=== PATIENT | female | born 1955 | race Caucasian/White ===

== ENCOUNTER 2018-12-30 13:36 | Inpatient (IN) | payer MEDICARE ==
--- NOTE | 2018-12-30 14:06 | ERPHSYRPT ---
- History of Present Illness Time Seen by Provider: 12/30/18 13:55 Source: patient, family, EMS Exam Limitations: no limitations Patient Subjective Stated Complaint: pt here for swelling to lower legs, sob at times, cough nonproductive, she states that she has had increase swelling for over 2 weeks now, was seen at drs office ans started on a new water pill she states is not working, Triage Nursing Assessment: pt arrived per ambulance, resp easy at rest, labored with excertion, skin w/d/p. edema to lower legs and distended abd Physician History: 63 y/o obese white female with h/o htn, mi and chronic back pain. approx 2 weeks ago pt noticed increased swelling bilat lower ext. she has associated soa. pt has also abd distension over last 1 to 2 days. pt states she has gained 14 pounds in last 2 weeks. pt seen by pcp recently and pt placed on bumex. pts most recent colonoscopy revealed benign polyps. pt did have recent airplane travel across country. pt states she has itching with morphine. she can use dilaudid without problems. Timing/Duration: day(s) (2 for abd distension), week(s) (2 for swelling) Severity: moderate Associated Symptoms: nausea, abdominal pain, shortness of breath, No vomiting, No chest pain Allergies/Adverse Reactions: morphine Allergy (Mild, Verified 12/30/18 13:38) Itching Home Medications: Lisinopril/Hydrochlorothiazide [Zestoretic 10-12.5 mg Tablet] 10 - 12.5 mg PO DAILY 02/21/12 [History] Albuterol 2.5 mg/3 ml Neb [Proventil 2.5 mg/3 ml Neb] 1 neb IH QID PRN 01/26 [History] Amlodipine Besylate 5 mg DAILY 12/30/18 [History] Bumetanide 2 mg DAILY 12/30/18 [History] Potassium 1 ea DAILY 12/30/18 [History] Rosuvastatin Calcium 5 mg DAILY 12/30/18 [History] Hx Influenza Vaccination/Date Given: Yes Hx Pneumococcal Vaccination/Date Given: Yes Immunizations Up to Date: Yes - Review of Systems Constitutional: No Symptoms Eyes: No Symptoms Ears, Nose, & Throat: No Symptoms Respiratory: Dyspnea Cardiac: Edema Abdominal/Gastrointestinal: Abdominal Pain Musculoskeletal: No Symptoms Skin: No Symptoms Neurological: No Symptoms Psychological: No Symptoms Endocrine: No Symptoms Hematologic/Lymphatic: No Symptoms Immunological/Allergic: No Symptoms All Other Systems: Reviewed and Negative - Past Medical History Pertinent Past Medical History: Yes Neurological History: No Pertinent History ENT History: No Pertinent History Cardiac History: Angina, High Cholesterol, Hypertension, Myocardial Infarction ( [place]) Respiratory History: No Pertinent History Endocrine Medical History: No Pertinent History Musculoskeletal History: Fractures, Osteoarthritis GI Medical History: No Pertinent History History: No Pertinent History Psycho-Social History: Anxiety, Depression Female Reproductive Disorders: No Pertinent History Other Medical History: fibroids in breast. left elbow fx, chronic back pain - Past Surgical History Past Surgical History: Yes Neuro Surgical History: No Pertinent History Cardiac: Cardiac Catheterization Respiratory: No Pertinent History Gastrointestinal: No Pertinent History Genitourinary: No Pertinent History Musculoskeletal: Orthopedic Surgery Female Surgical History: No Pertinent History Other Surgical History: right knee replaced and revision after a fall. bilateral ear tubes - Social History Smoking Status: Former smoker How long have you smoked: 40yrs Exposure to second hand smoke: Yes Drug Use: none Patient Lives Alone: No - Female History Hx Last Menstrual Period: psot Hx Now: No - Nursing Vital Signs Nursing Vital Signs: Initial Vital Signs Temperature 97.0 F 12/30/18 13:47 Pulse Rate 109 H 12/30/18 13:47 Respiratory Rate 22 12/30/18 13:47 Blood Pressure 138/83 12/30/18 13:47 O2 Sat by Pulse Oximetry 94 L 12/30/18 13:47 Pain Scale Pain Intensity [Back] 8 Pain Intensity 4 - Physical Exam Eye Exam: PERRL/EOMI Ears, Nose, Throat Exam: normal ENT inspection Neck Exam: normal inspection, non-tender, supple, full range of motion Respiratory Exam: normal breath sounds, lungs clear, airway intact, No chest tenderness, No respiratory distress Cardiovascular Exam: regular rate/rhythm, normal heart sounds, normal peripheral pulses Gastrointestinal/Abdomen Exam: tenderness (mild diffuse), distention, No guarding, No rebound Pelvic Exam: not done Rectal Exam: not done Back Exam: normal inspection, normal range of motion, No CVA tenderness, No vertebral tenderness Extremity Exam: pedal edema, swelling Skin Exam: normal color, warm, dry Lymphatic Exam: No adenopathy SpO2 Interpretation: borderline oxygenation SpO2: 94 O2 Delivery: Room Air - Course Nursing assessment & vital signs reviewed: Yes EKG Interpreted by Me: RATE ([id number]), Sinus Rhythm, Sinus Tach, NORMAL AXIS, NORMAL QRS, Other (new s1/sQ3, new onset tachycardia, when compared to ekg ) Ordered Tests: Active Orders 24 hr Category Date Time Status Catheter-[place] STAT Care 12/30/18 14:09 Active EKG-ER Only STAT Care 12/30/18 14:09 Active IV Insertion STAT Care 12/30/18 14:09 Active Pulse Oximetry (ED) STAT Care 12/30/18 14:09 Active ABDOMEN AND PELVIS W/0 CONTRAS [CT] Stat Exams 12/30/18 15:27 Taken CHEST WITH CONTRAST [CT] Stat Exams 12/30/18 15:27 Taken AMYLASE Stat Lab 12/30/18 14:27 Completed CBC W DIFF Stat Lab 12/30/18 14:27 Completed CMP Stat Lab 12/30/18 14:27 Completed CULTURE,URINE Stat Lab 12/30/18 14:27 Received D-DIMER QUANTITATION Stat Lab 12/30/18 14:27 Completed LIPASE Stat Lab 12/30/18 14:27 Completed Lactic Acid Stat Lab 12/30/18 14:09 Completed MAGNESIUM Stat Lab 12/30/18 14:27 Completed NT PRO BNP Stat Lab 12/30/18 14:27 Completed TROPONIN Q3H Lab 12/30/18 14:27 Completed TROPONIN Q3H Lab 12/31/18 02:15 Ordered UA W/RFX UR CULTURE Stat Lab 12/30/18 14:27 Completed Transfer Order Routine Transfer 12/30/18 Ordered Medication Summary Generic Name Dose Route Start Last Admin Trade Name Freq PRN Reason Stop Dose Admin Enoxaparin Sodium 100 mg 12/30/18 20:00 12/30/18 20:14 Enoxaparin Sodium SQ 01/29/19 19:59 100 mg Q12H ESTEBAN Administration Discontinued Medications Generic Name Dose Route Start Last Admin Trade Name Freq PRN Reason Stop Dose Admin Enoxaparin Sodium Confirm 12/30/18 20:11 Enoxaparin Sodium Administered 12/30/18 20:12 Dose 120 mg SQ .STK-MED ONE Hydromorphone HCl 1 mg 12/30/18 20:06 12/30/18 20:14 Hydromorphone 1 Mg/Ml Ampule IV 12/30/18 20:07 1 mg STAT ONE Administration Hydromorphone HCl Confirm 12/30/18 20:11 Hydromorphone 1 Mg/Ml Ampule Administered 12/30/18 20:12 Dose 1 mg .ROUTE .STK-MED ONE Morphine Sulfate 4 mg 12/30/18 19:59 Morphine Sulfate 4 Mg Inj IV 12/30/18 20:00 STAT ONE Ondansetron HCl 4 mg 12/30/18 19:59 12/30/18 20:13 Zofran 4 Mg/2 Ml Vial IV 12/30/18 20:00 4 mg STAT ONE Administration Ondansetron HCl Confirm 12/30/18 20:11 Zofran 4 Mg/2 Ml Vial Administered 12/30/18 20:12 Dose 4 mg .ROUTE .STK-MED ONE Lab/Rad Data: Laboratory Result Diagrams 12/30/18 14:27 12/30/18 14:27 Laboratory Results 12/30/18 12/30/18 12/30/18 Range/Units 14:27 14:27 14:27 WBC (4.0-10.5) K/mm3 RBC (4.1-5.4) M/mm3 Hgb (12.0-16.0) gm/dl Hct (35-47) % MCV (78-100) fl MCH (26-32) pg MCHC (32-36) g/dl RDW (11.5-14.0) % Plt Count (150-450) K/mm3 MPV (6-9.5) fl Gran % (36.0-66.0) % Eos # (Auto) (0-0.5) Absolute Lymphs (auto) (1.0-4.6) Absolute Monos (auto) (0.0-1.3) Lymphocytes % (24.0-44.0) % Monocytes % (0.0-12.0) % Eosinophils % (0.00-5.0) % Basophils % (0.0-0.4) % Absolute Granulocytes (1.4-6.9) Basophils # (0-0.4) D-Dimer 7635 H* (215-500) ng/mL Sodium (137-145) mmol/L Potassium (3.5-5.1) mmol/L Chloride (98-107) mmol/L Carbon Dioxide (22-30) mmol/L Anion Gap (5-15) MEQ/L BUN (7-17) mg/dL Creatinine (0.52-1.04) mg/dL Estimated GFR ML/MIN Glucose (74-106) mg/dL Lactic Acid (0.4-2.0) Calcium (8.4-10.2) mg/dL Magnesium (1.6-2.3) mg/dL Total Bilirubin (0.2-1.3) mg/dL AST (14-36) U/L ALT (0-35) U/L Alkaline Phosphatase (38-126) U/L Troponin I < 0.012 (0.000-0.034) ng/mL NT-Pro-B Natriuret Pep (0-900) pg/mL Serum Total Protein (6.3-8.2) g/dL Albumin (3.5-5.0) g/dL Amylase (30-110) U/L Lipase (23-300) U/L Urine Color YELLOW (YELLOW) Urine Appearance CLEAR (CLEAR) Urine pH 6.0 (5-6) Ur Specific [place] 1.020 (1.005-1.025) Urine Protein NEGATIVE (Negative) Urine Ketones NEGATIVE (NEGATIVE) Urine Blood SMALL (0-5) Byron/ul Urine Nitrite NEGATIVE (NEGATIVE) Urine Bilirubin NEGATIVE (NEGATIVE) Urine Urobilinogen NEGATIVE (0-1) mg/dL Ur Leukocyte Esterase NEGATIVE (NEGATIVE) Urine WBC (Auto) NONE (0-5) /HPF Urine RBC (Auto) 0-2 (0-2) /HPF U Epithel Cells (Auto) RARE (FEW) /HPF Urine Bacteria (Auto) RARE (NEGATIVE) /HPF Urine Culture Reflexed ORDERED SEPARATELY (NO) Urine Glucose NEGATIVE (NEGATIVE) mg/dL 12/30/18 12/30/18 12/30/18 Range/Units 14:27 14:27 14:09 WBC 12.5 H (4.0-10.5) K/mm3 RBC 4.03 L (4.1-5.4) M/mm3 Hgb 12.3 (12.0-16.0) gm/dl Hct 37.5 (35-47) % MCV 93.1 (78-100) fl MCH 30.5 (26-32) pg MCHC 32.8 (32-36) g/dl RDW 12.4 (11.5-14.0) % Plt Count 371 (150-450) K/mm3 MPV 10.6 H (6-9.5) fl Gran % 78.8 H (36.0-66.0) % Eos # (Auto) 0.14 (0-0.5) Absolute Lymphs (auto) 1.28 (1.0-4.6) Absolute Monos (auto) 1.20 (0.0-1.3) Lymphocytes % 10.2 L (24.0-44.0) % Monocytes % 9.6 (0.0-12.0) % Eosinophils % 1.1 (0.00-5.0) % Basophils % 0.3 (0.0-0.4) % Absolute Granulocytes 9.85 H (1.4-6.9) Basophils # 0.04 (0-0.4) D-Dimer (215-500) ng/mL Sodium 131 L (137-145) mmol/L Potassium 3.8 (3.5-5.1) mmol/L Chloride 90 L (98-107) mmol/L Carbon Dioxide 28 (22-30) mmol/L Anion Gap 15.9 H (5-15) MEQ/L BUN 15 (7-17) mg/dL Creatinine 0.89 (0.52-1.04) mg/dL Estimated GFR > 60.0 ML/MIN Glucose 117 H (74-106) mg/dL Lactic Acid 1.7 (0.4-2.0) Calcium 8.6 (8.4-10.2) mg/dL Magnesium 1.7 (1.6-2.3) mg/dL Total Bilirubin 0.40 (0.2-1.3) mg/dL AST 31 (14-36) U/L ALT 22 (0-35) U/L Alkaline Phosphatase 86 (38-126) U/L Troponin I (0.000-0.034) ng/mL NT-Pro-B Natriuret Pep 78.8 (0-900) pg/mL Serum Total Protein 6.7 (6.3-8.2) g/dL Albumin 3.6 (3.5-5.0) g/dL Amylase 211 H (30-110) U/L Lipase 67 (23-300) U/L Urine Color (YELLOW) Urine Appearance (CLEAR) Urine pH (5-6) Ur Specific [place] (1.005-1.025) Urine Protein (Negative) Urine Ketones (NEGATIVE) Urine Blood (0-5) Byron/ul Urine Nitrite (NEGATIVE) Urine Bilirubin (NEGATIVE) Urine Urobilinogen (0-1) mg/dL Ur Leukocyte Esterase (NEGATIVE) Urine WBC (Auto) (0-5) /HPF Urine RBC (Auto) (0-2) /HPF U Epithel Cells (Auto) (FEW) /HPF Urine Bacteria (Auto) (NEGATIVE) /HPF Urine Culture Reflexed (NO) Urine Glucose (NEGATIVE) mg/dL - Progress Progress Note: 12/30/18 19:08 cta chest-negative for pulm embolism ct abd/pelvis-mod free fluid. omental thickening and nodularity. 12/30/18 20:[address] riggs who is covering for dr. anton. i reviewed pt hx, condition, lab, and ct scan results. she accepts for admission. will give lovenox, order venous doppler and interventional radiologist consult. Discussed with Dr.: Other (keely covering for dr. anton) Counseled pt/family regarding: lab results, diagnosis, need for follow-up, rad results - Departure Departure Disposition: In-patient Admission Clinical Impression: Edema, Ascites Condition: Stable Critical Care Time: No Referrals: VANGIE ANTON MD [Primary Care Provider] -
[2018-12-30 14:41] LABS: BASOPHIL % 0.3 % (0.0-0.4); Basophil (Absolute #) 0.04 (0-0.4); Eosinophil % 1.1 % (0.00-5.0); Eosinophil (Absolute #) 0.14 (0-0.5); Granulocyte Absolute (ANC) 9.85 (1.4-6.9); Granulocytes % 78.8 % (36.0-66.0); Hematocrit 37.5 % (35-47); Hemoglobin 12.3 gm/dl (12.0-16.0); Lymphocyte (Absolute #) 1.28 (1.0-4.6); Lymphocytes % 10.2 % (24.0-44.0); Mean Cell Volume 93.1 fl (78-100); Mean Corpuscular Hemoglobin 30.5 pg (26-32); Mean Corpuscular Hgb Concent. 32.8 g/dl (32-36); Mean Platelet Volume 10.6 fl (6-9.5); Monocytes % 9.6 % (0.0-12.0); Platelet Count 371 K/mm3 (150-450); Red Blood Count 4.03 M/mm3 (4.1-5.4); Red Cell Distribution Width 12.4 % (11.5-14.0); White Blood Count 12.5 K/mm3 (4.0-10.5)
[2018-12-30 14:55] LABS: Appearance CLEAR (CLEAR); Bacteria RARE /HPF (NEGATIVE); Bilirubin NEGATIVE (NEGATIVE); Blood SMALL Ery/ul (0-5); Epithelial Cells RARE /HPF (FEW); Glucose NEGATIVE (NEGATIVE); Ketones NEGATIVE (NEGATIVE); Leukocyte Esterase NEGATIVE (NEGATIVE); Nitrite NEGATIVE (NEGATIVE); Protein,Urine Dip NEGATIVE (Negative); RBC 0-2 /HPF (0-2); Urobilinogen NEGATIVE mg/dL (0-1)
[2018-12-30 15:11] LABS: ALBUMIN 3.6 g/dL (3.5-5.0); ALKALINE PHOSPHATASE 86 U/L (38-126); AMYLASE 211 U/L (30-110); ANION GAP 15.9 MEQ/L (5-15); BLOOD UREA NITROGEN 15 mg/dL (7-17); CHLORIDE 90 mmol/L (98-107); Calcium 8.6 mg/dL (8.4-10.2); Carbon Dioxide 28 mmol/L (22-30); Creatinine 1 0.89 mg/dL (0.52-1.04); Glucose 117 mg/dL (74-106); LIPASE 67 U/L (23-300); MAGNESIUM 1.7 mg/dL (1.6-2.3); NT PRO BNP 78.8 pg/mL (0-900); Potassium 3.8 mmol/L (3.5-5.1); SGOT/AST 31 U/L (14-36); SGPT/ALT 22 U/L (0-35); SODIUM 131 mmol/L (137-145); Total Protein 6.7 g/dL (6.3-8.2)
[2018-12-30] MEDS ORDERED: MORPHINE SULFATE 4 MG INJ IV ONE (19:59)
[2018-12-30] MEDS ORDERED: Zofran 4 MG/2 ML VIAL IV ONE (19:59)
[2018-12-30] MEDS ORDERED: ENOXAPARIN SODIUM SQ SCH ×2 (20:00→20:58)
[2018-12-30] MEDS ORDERED: Hydromorphone 1 mg/ml Ampule IV ONE (20:06)
[2018-12-30] MEDS ORDERED: ENOXAPARIN SODIUM SQ ONE (20:11)
[2018-12-30] MEDS ORDERED: Hydromorphone 1 mg/ml Ampule ONE (20:11)
[2018-12-30] MEDS ORDERED: Zofran 4 MG/2 ML VIAL ONE ×2 (20:11→20:17)
[2018-12-30] MEDS ORDERED: hydroDIURIL 25 MG ONE (22:53)
[2018-12-30] MEDS ORDERED: Zestril 10 MG ONE (22:53)
[2018-12-30] MEDS ORDERED: Zestril 10 MG*** 10 MG, hydroDIURIL 25 MG*** 12.5 MG PO SCH ×2 (23:00)
[2018-12-31] MEDS: TYLENOL 325 MG PO PRN ×2 (00:25→12:02)
[2018-12-31] MEDS: DILAUDID 2 MG INJECTION IV PRN ×6 (00:26→21:27)
[2018-12-31] MEDS: Zofran 4 MG/2 ML VIAL IV PRN ×2 (01:53→08:47)
[2018-12-31] MEDS ORDERED: MAG-OX 400 PO PRN (03:54)
[2018-12-31] MEDS ORDERED: Cyclobenzaprine 10 MG PO PRN ×3 (03:59→13:41)
[2018-12-31] MEDS ORDERED: MAG-OX 400 PO ONE (04:00)
[2018-12-31 06:14] LABS: BASOPHIL % 0.2 % (0.0-0.4); Basophil (Absolute #) 0.02 (0-0.4); Eosinophil % 0.3 % (0.00-5.0); Eosinophil (Absolute #) 0.04 (0-0.5); Granulocyte Absolute (ANC) 9.76 (1.4-6.9); Granulocytes % 83.2 % (36.0-66.0); Hemoglobin 11.7 gm/dl (12.0-16.0); Lymphocyte (Absolute #) 1.03 (1.0-4.6); Lymphocytes % 8.8 % (24.0-44.0); Mean Cell Volume 93.1 fl (78-100); Mean Corpuscular Hemoglobin 31.1 pg (26-32); Mean Corpuscular Hgb Concent. 33.4 g/dl (32-36); Mean Platelet Volume 10.7 fl (6-9.5); Monocyte (Absolute #) 0.88 (0.0-1.3); Monocytes % 7.5 % (0.0-12.0); Platelet Count 383 K/mm3 (150-450); Red Blood Count 3.76 M/mm3 (4.1-5.4); Red Cell Distribution Width 12.5 % (11.5-14.0); White Blood Count 11.7 K/mm3 (4.0-10.5)
[2018-12-31 06:34] LABS: ALBUMIN 3.4 g/dL (3.5-5.0); ALKALINE PHOSPHATASE 80 U/L (38-126); ANION GAP 15.7 MEQ/L (5-15); BLOOD UREA NITROGEN 15 mg/dL (7-17); CHLORIDE 91 mmol/L (98-107); Calcium 8.6 mg/dL (8.4-10.2); Carbon Dioxide 29 mmol/L (22-30); Creatinine 1 0.85 mg/dL (0.52-1.04); Glucose 135 mg/dL (74-106); Potassium 4.3 mmol/L (3.5-5.1); SGOT/AST 26 U/L (14-36); SGPT/ALT 19 U/L (0-35); SODIUM 132 mmol/L (137-145); Total Protein 6.5 g/dL (6.3-8.2)
[2018-12-31] MEDS ORDERED: PROVENTIL 2.5 MG/3 ML NEB IH PRN (07:50)
[2018-12-31] MEDS ORDERED: MEDICATION INTERVENTION PO SCH ×2 (08:15)
--- NOTE | 2018-12-31 08:36 | XRAY ---
Indication: Abdomen pain, pressure, bloating, and nausea. Elevated d-dimer. Multiple contiguous axial images obtained through the chest using total 155 cc Isovue-370 contrast and PE protocol. Comparison: None There is satisfactory opacification of the pulmonary arteries. However mild respiration artifact limits evaluation of the more distal lobar and segmental branches. No gross central pulmonary embolus. Heart is not enlarged. Aorta is normal in course and caliber. No pathologic mediastinal/hilar lymphadenopathy. Moderate-sized hiatal hernia. Examination of the lung parenchyma demonstrates moderate centrilobular pulmonary emphysema, minimal bilateral dependent atelectasis, and mild bibasilar atelectasis/scarring. Minor fissure (image 31) and peripheral left lower lobe (image 37) 2-3 mm noncalcified nodule versus scarring. No infiltrate or effusion. Mild right hemidiaphragm elevation. Bony thorax intact with minimal degenerative changes throughout the spine. CT abdomen reported separately. Impression: 1. Pulmonary embolus evaluation limited by respiration artifact. No gross central pulmonary embolus. 2. Incidental tiny noncalcified nodules versus scarring, pulmonary emphysema, scattered atelectasis/scarring, and hiatal hernia. Comment: Preliminary interpretation was made by [facility] who does not report incidental findings. CTDI 23.68
--- NOTE | 2018-12-31 08:42 | XRAY ---
Indication: Abdomen pain, pressure, bloating, and nausea. Multiple contiguous axial images obtained through the abdomen and pelvis without contrast as ordered. Comparison: None CT chest reported separately. Noncontrasted stomach and bowel loops appear nonobstructed. There is moderate abdomen/pelvic ascites along with diffuse scattered omental thickening/caking. No free air. Incidental 2 cm gallstone and Coronado catheter in situ. Remaining liver, pancreas, spleen, adrenal glands, kidneys, ureters, and uterus appear unremarkable for noncontrast exam. Mild aortoiliac calcifications without AAA. Osseous structures intact with mild/moderate degenerative changes throughout the lumbar spine and mild dextrorotoscoliosis. No ventral or inguinal hernias. Impression: 1. Abdomen/pelvic ascites with omental thickening/caking worrisome for malignancy. 2. Incidental gallstone, degenerative spondylosis, and scoliosis. 3. Remaining CT abdomen/pelvis without contrast exam is negative. Comment: Preliminary interpretation was made by [facility]. No critical discrepancy. CTDI 23.39
--- NOTE | 2018-12-31 08:44 | PCM.HP ---
History of Present Illness - Chief Complaint Chief Complaint: abdominal swelling and leg swelling for 1 week History of Present Illness: is a 63 year old female. approx 2 weeks ago pt noticed increased swelling bilat lower ext. she has associated soa. pt has also abd distension over last 1 to 2 days. pt states she has gained 14 pounds in last 2 weeks. pt seen by pcp recently and pt placed on bumex. pts most recent colonoscopy revealed benign polyps. pt did have recent airplane travel across country. pt states she has itching with morphine. she can use dilaudid without problems. - Review of Systems Constitutional: No Fever, No Chills Eyes: No Symptoms Ears, Nose, & Throat: No Symptoms Respiratory: No Cough, No Short Of Breath Cardiac: No Chest Pain, No Edema, No Syncope Abdominal/Gastrointestinal: Abdominal Pain, No Nausea, No Vomiting, No Diarrhea Genitourinary Symptoms: No Dysuria Musculoskeletal: No Back Pain, No Neck Pain Skin: No Rash Neurological: No Dizziness, No Focal Weakness, No Sensory Changes Psychological: No Symptoms Endocrine: No Symptoms Hematologic/Lymphatic: No Symptoms Immunological/Allergic: No Symptoms Medications & Allergies Home Medications: Home Medication List Lisinopril/Hydrochlorothiazide [Zestoretic 10-12.5 mg Tablet] 10 - 12.5 mg PO DAILY 02/21/12 [History Confirmed 12/30/18] Albuterol 2.5 mg/3 ml Neb [Proventil 2.5 mg/3 ml Neb] 1 neb IH QID PRN 01/26 [History Confirmed 12/30/18] Bumetanide 2 mg DAILY 12/30/18 [History Confirmed 12/30/18] Omeprazole Magnesium [Prilosec Otc] 20 mg PO DAILY 12/30/18 [History Confirmed 12/30/18] Potassium 1 ea DAILY 12/30/18 [History Confirmed 12/30/18] Rosuvastatin Calcium 5 mg DAILY 12/30/18 [History Confirmed 12/30/18] Ubidecar/Fish Oil/[place]-3/Benny [Coq-10 & Fish Oil Softgel] 100 mg PO QAM [History Confirmed 12/30/18] Allergies/Adverse Reactions: Allergies Allergy/AdvReac Type Severity Reaction Status Date / Time morphine Allergy Mild Itching Verified 12/30/18 13:38 - Past Medical History Past Medical History: Yes Neurological History: No Pertinent History, Other ENT History: No Pertinent History Cardiac History: Angina, High Cholesterol, Hypertension, Myocardial Infarction ( [place]) Respiratory History: Asthma Endocrine Medical History: No Pertinent History Musculoskelatal History: Fibromyalgia, Fractures, Osteoarthritis GI Medical History: No Pertinent History History: No Pertinent History Pyscho-Social History: Anxiety, Depression Reproductive Disorders: No Pertinent History Comment: fibroids in breast. left elbow fx, chronic back pain, fibromyalgia, left shoulder needs replaced. - Female History Hx Last Menstrual Period: psot Are you now?: No - Past Surgical History Past Surgical History: Yes Neuro Surgical History: No Pertinent History Cardiac History: Cardiac Catheterization Respiratory Surgery: No Pertinent History GI Surgical History: No Pertinent History Genitourinary Surgical Hx: No Pertinent History Musculskeletal Surgical Hx: Orthopedic Surgery Female Surgical History: No Pertinent History Other Surgical History: right knee replaced and revision after a fall. bilateral ear tubes - Social History Smoking Status: Former smoker How long have you smoked: 40yrs Exposure to second hand smoke: Yes Alcohol: None Drug Use: none - Physical Exam Vital Signs: Vital Signs - 24 hr Temp Pulse Resp BP Pulse Ox 12/31/18 07:30 97.5 F 94 H 18 107/63 93 L 12/31/18 04:00 97.6 F 97 H 19 111/72 94 L 12/31/18 00:00 18 12/30/18 23:47 98.6 F 109 H 18 129/76 95 12/30/18 22:34 99.4 F 111 H 18 145/72 90 L 12/30/18 20:50 99.4 F 111 H 18 145/72 90 L 12/30/18 20:33 114 H 14 143/92 92 L 12/30/18 20:16 94 L 12/30/18 19:50 73 16 155/99 98 12/30/18 19:00 115 H 18 113/73 93 L 12/30/18 17:52 115 H 16 127/84 94 L 12/30/18 16:54 112 H 20 127/84 97 12/30/18 15:25 118 H 20 121/77 96 12/30/18 14:20 96 12/30/18 13:47 97.0 F 109 H 22 138/83 94 L Oxygen-Last 24 hours O2 Percentage 2 Liters = 28% O2 Percentage 2 Liters = 28% Oxygen Flowrate (L/min)-RT 145 Oxygen Flowrate (L/min)-RT 145 General Appearance: no apparent distress, alert Neurologic Exam: alert, oriented x 3, cooperative, normal mood/affect, nml cerebellar function, nml station & gait, sensation nml, No motor deficits Eye Exam: PERRL/EOMI, eyes nml inspection Ears, Nose, Throat Exam: normal ENT inspection, TMs normal, pharynx normal, moist mucous membranes Neck Exam: normal inspection, non-tender, supple, full range of motion Respiratory Exam: normal breath sounds, lungs clear, No respiratory distress Cardiovascular Exam: regular rate/rhythm, normal heart sounds, normal peripheral pulses Gastrointestinal/Abdomen Exam: soft, normal bowel sounds, distention, No tenderness, No mass Back Exam: normal inspection, normal range of motion, No CVA tenderness, No vertebral tenderness Extremity Exam: normal inspection, normal range of motion, pelvis stable Skin Exam: normal color, warm, dry, No rash Lymphatic Exam: No adenopathy Results - Labs Lab/Micro Results: Lab Results-Last 24 Hours 12/30/18 12/30/18 12/30/18 Range/Units 14:09 14:27 14:27 WBC 12.5 H (4.0-10.5) K/mm3 RBC 4.03 L (4.1-5.4) M/mm3 Hgb 12.3 (12.0-16.0) gm/dl Hct 37.5 (35-47) % MCV 93.1 (78-100) fl MCH 30.5 (26-32) pg MCHC 32.8 (32-36) g/dl RDW 12.4 (11.5-14.0) % Plt Count 371 (150-450) K/mm3 MPV 10.6 H (6-9.5) fl Gran % 78.8 H (36.0-66.0) % Eos # (Auto) 0.14 (0-0.5) Absolute Lymphs (auto) 1.28 (1.0-4.6) Absolute Monos (auto) 1.20 (0.0-1.3) Lymphocytes % 10.2 L (24.0-44.0) % Monocytes % 9.6 (0.0-12.0) % Eosinophils % 1.1 (0.00-5.0) % Basophils % 0.3 (0.0-0.4) % Absolute Granulocytes 9.85 H (1.4-6.9) Basophils # 0.04 (0-0.4) D-Dimer (215-500) ng/mL Sodium 131 L (137-145) mmol/L Potassium 3.8 (3.5-5.1) mmol/L Chloride 90 L (98-107) mmol/L Carbon Dioxide 28 (22-30) mmol/L Anion Gap 15.9 H (5-15) MEQ/L BUN 15 (7-17) mg/dL Creatinine 0.89 (0.52-1.04) mg/dL Estimated GFR > 60.0 ML/MIN Glucose 117 H (74-106) mg/dL Lactic Acid 1.7 (0.4-2.0) Calcium 8.6 (8.4-10.2) mg/dL Magnesium 1.7 (1.6-2.3) mg/dL Total Bilirubin 0.40 (0.2-1.3) mg/dL AST 31 (14-36) U/L ALT 22 (0-35) U/L Alkaline Phosphatase 86 (38-126) U/L Troponin I (0.000-0.034) ng/mL NT-Pro-B Natriuret Pep 78.8 (0-900) pg/mL Serum Total Protein 6.7 (6.3-8.2) g/dL Albumin 3.6 (3.5-5.0) g/dL Amylase 211 H (30-110) U/L Lipase 67 (23-300) U/L Urine Color (YELLOW) Urine Appearance (CLEAR) Urine pH (5-6) Ur Specific [place] (1.005-1.025) Urine Protein (Negative) Urine Ketones (NEGATIVE) Urine Blood (0-5) Byron/ul Urine Nitrite (NEGATIVE) Urine Bilirubin (NEGATIVE) Urine Urobilinogen (0-1) mg/dL Ur Leukocyte Esterase (NEGATIVE) Urine WBC (Auto) (0-5) /HPF Urine RBC (Auto) (0-2) /HPF U Epithel Cells (Auto) (FEW) /HPF Urine Bacteria (Auto) (NEGATIVE) /HPF Urine Culture Reflexed (NO) Urine Glucose (NEGATIVE) mg/dL 12/30/18 12/30/18 12/30/18 Range/Units 14:27 14:27 14:27 WBC (4.0-10.5) K/mm3 RBC (4.1-5.4) M/mm3 Hgb (12.0-16.0) gm/dl Hct (35-47) % MCV (78-100) fl MCH (26-32) pg MCHC (32-36) g/dl RDW (11.5-14.0) % Plt Count (150-450) K/mm3 MPV (6-9.5) fl Gran % (36.0-66.0) % Eos # (Auto) (0-0.5) Absolute Lymphs (auto) (1.0-4.6) Absolute Monos (auto) (0.0-1.3) Lymphocytes % (24.0-44.0) % Monocytes % (0.0-12.0) % Eosinophils % (0.00-5.0) % Basophils % (0.0-0.4) % Absolute Granulocytes (1.4-6.9) Basophils # (0-0.4) D-Dimer 7635 H* (215-500) ng/mL Sodium (137-145) mmol/L Potassium (3.5-5.1) mmol/L Chloride (98-107) mmol/L Carbon Dioxide (22-30) mmol/L Anion Gap (5-15) MEQ/L BUN (7-17) mg/dL Creatinine (0.52-1.04) mg/dL Estimated GFR ML/MIN Glucose (74-106) mg/dL Lactic Acid (0.4-2.0) Calcium (8.4-10.2) mg/dL Magnesium (1.6-2.3) mg/dL Total Bilirubin (0.2-1.3) mg/dL AST (14-36) U/L ALT (0-35) U/L Alkaline Phosphatase (38-126) U/L Troponin I < 0.012 (0.000-0.034) ng/mL NT-Pro-B Natriuret Pep (0-900) pg/mL Serum Total Protein (6.3-8.2) g/dL Albumin (3.5-5.0) g/dL Amylase (30-110) U/L Lipase (23-300) U/L Urine Color YELLOW (YELLOW) Urine Appearance CLEAR (CLEAR) Urine pH 6.0 (5-6) Ur Specific [place] 1.020 (1.005-1.025) Urine Protein NEGATIVE (Negative) Urine Ketones NEGATIVE (NEGATIVE) Urine Blood SMALL (0-5) Byron/ul Urine Nitrite NEGATIVE (NEGATIVE) Urine Bilirubin NEGATIVE (NEGATIVE) Urine Urobilinogen NEGATIVE (0-1) mg/dL Ur Leukocyte Esterase NEGATIVE (NEGATIVE) Urine WBC (Auto) NONE (0-5) /HPF Urine RBC (Auto) 0-2 (0-2) /HPF U Epithel Cells (Auto) RARE (FEW) /HPF Urine Bacteria (Auto) RARE (NEGATIVE) /HPF Urine Culture Reflexed ORDERED SEPARATELY (NO) Urine Glucose NEGATIVE (NEGATIVE) mg/dL 12/31/18 12/31/18 Range/Units 05:25 05:25 WBC 11.7 H (4.0-10.5) K/mm3 RBC 3.76 L (4.1-5.4) M/mm3 Hgb 11.7 L (12.0-16.0) gm/dl Hct 35.0 (35-47) % MCV 93.1 (78-100) fl MCH 31.1 (26-32) pg MCHC 33.4 (32-36) g/dl RDW 12.5 (11.5-14.0) % Plt Count 383 (150-450) K/mm3 MPV 10.7 H (6-9.5) fl Gran % 83.2 H (36.0-66.0) % Eos # (Auto) 0.04 (0-0.5) Absolute Lymphs (auto) 1.03 (1.0-4.6) Absolute Monos (auto) 0.88 (0.0-1.3) Lymphocytes % 8.8 L (24.0-44.0) % Monocytes % 7.5 (0.0-12.0) % Eosinophils % 0.3 (0.00-5.0) % Basophils % 0.2 (0.0-0.4) % Absolute Granulocytes 9.76 H (1.4-6.9) Basophils # 0.02 (0-0.4) D-Dimer (215-500) ng/mL Sodium 132 L (137-145) mmol/L Potassium 4.3 (3.5-5.1) mmol/L Chloride 91 L (98-107) mmol/L Carbon Dioxide 29 (22-30) mmol/L Anion Gap 15.7 H (5-15) MEQ/L BUN 15 (7-17) mg/dL Creatinine 0.85 (0.52-1.04) mg/dL Estimated GFR > 60.0 ML/MIN Glucose 135 H (74-106) mg/dL Lactic Acid (0.4-2.0) Calcium 8.6 (8.4-10.2) mg/dL Magnesium (1.6-2.3) mg/dL Total Bilirubin 0.50 (0.2-1.3) mg/dL AST 26 (14-36) U/L ALT 19 (0-35) U/L Alkaline Phosphatase 80 (38-126) U/L Troponin I (0.000-0.034) ng/mL NT-Pro-B Natriuret Pep (0-900) pg/mL Serum Total Protein 6.5 (6.3-8.2) g/dL Albumin 3.4 L (3.5-5.0) g/dL Amylase (30-110) U/L Lipase (23-300) U/L Urine Color (YELLOW) Urine Appearance (CLEAR) Urine pH (5-6) Ur Specific [place] (1.005-1.025) Urine Protein (Negative) Urine Ketones (NEGATIVE) Urine Blood (0-5) Byron/ul Urine Nitrite (NEGATIVE) Urine Bilirubin (NEGATIVE) Urine Urobilinogen (0-1) mg/dL Ur Leukocyte Esterase (NEGATIVE) Urine WBC (Auto) (0-5) /HPF Urine RBC (Auto) (0-2) /HPF U Epithel Cells (Auto) (FEW) /HPF Urine Bacteria (Auto) (NEGATIVE) /HPF Urine Culture Reflexed (NO) Urine Glucose (NEGATIVE) mg/dL Microbiology 12/30/18 14:27 Urine Culture - Preliminary Catherized NO GROWTH TO DATE - Radiology Impressions Radiology Exams & Impressions: Radiology Procedures Category Date Time Status ABDOMEN AND PELVIS W/0 CONTRAS [CT] Stat Exams 12/30/18 15:27 Taken ABDOMINAL PARACENTESIS [US] Routine Exams 01/01/19 09:00 Ordered CHEST WITH CONTRAST [CT] Stat Exams 12/30/18 15:27 Completed VENOUS BILATERAL EXTREMITY [US] Stat Exams 01/01/19 07:00 Ordered - Other Procedures and Tests Respiratory Therapy 12/30/18 20:58 Oxygen Nasal Cannula 2 lpm Assessment/Plan (1) Ascites Current Visit: Yes Status: Acute Qualifiers: Ascites type: other type Qualified Code(s): R18.8 - Other ascites Assessment & Plan: Last Vital Signs Temp 97.5 F 12/31/18 07:30 Pulse 94 H 12/31/18 07:30 Resp 18 12/31/18 07:30 BP 107/63 12/31/18 07:30 Pulse Ox 93 L 12/31/18 07:30 Allergies morphine Allergy (Mild, Verified 12/30/18 13:38) Itching Active Medications Acetaminophen (Tylenol 325 Mg) 650 mg PO Q4H PRN PRN PRN Reason: PAIN, FEVER, HEADACHE Stop: 01/29/19 20:57 Last Admin: 12/31/18 00:25 Dose: 650 mg Albuterol Sulfate (Proventil 2.5 Mg/3 Ml Neb) 2.5 mg IH QID PRN PRN PRN Reason: SHORTNESS OF BREATH Stop: 01/30/19 07:49 Bumetanide (Bumex 1 Mg) 2 mg PO DAILY [facility] Stop: 01/30/19 09:59 Lisinopril 10 mg/ (Hydrochlorothiazide 12.5 mg) 0 mg PO HS [facility] Stop: 01/29/19 22:59 Cyclobenzaprine HCl (Cyclobenzaprine 10 Mg) 0 mg PO BID PRN PRN PRN Reason: MUSCLE SPASMS Stop: 01/30/19 03:58 Enoxaparin Sodium (Enoxaparin Sodium) 100 mg SQ Q12HT ESTEBAN Stop: 01/29/19 20:57 Hydromorphone HCl (Dilaudid 2 Mg Injection) 1 mg IV Q4H PRN PRN PRN Reason: PAIN Stop: 01/04/19 20:57 Last Admin: 12/31/18 04:04 Dose: 1 mg Ceftriaxone Sodium/Dextrose (Rocephin 1 Gm-D5w 50 Ml Bag) 1 g in 50 mls @ 100 mls/hr IV Q24H10 ESTEBAN Stop: 01/30/19 09:59 Magnesium Oxide (Mag-Ox 400) 400 mg PO DAILY PRN PRN PRN Reason: muscle cramps Stop: 01/30/19 03:53 Miscellaneous Information (Medication Intervention) 1 each PO .RN TO CHECK ON ESTEBAN Stop: 01/30/19 08:14 Miscellaneous Information (Medication Intervention) 1 each PO .RN TO CHECK ON ESTEBAN Stop: 01/30/19 08:14 Ondansetron HCl (Zofran 4 Mg/2 Ml Vial) 4 mg IV Q6H PRN PRN PRN Reason: NAUSEA/VOMITING Stop: 01/29/19 20:57 Last Admin: 12/31/18 01:53 Dose: 4 mg Pantoprazole Sodium (Protonix 40mg Tablet) 40 mg PO DAILY ESTEBAN Stop: 01/30/19 09:59 Simvastatin (Zocor 10mg) 10 mg PO DAILY ESTEBAN Stop: 01/30/19 09:59 Intake & Output 12/30/18 12/31/18 11:59 11:59 Intake Total 1340 Output Total 800 Balance 540 Weight 104 kg Orders 01/01/19 09:00 ABDOMINAL PARACENTESIS [US] Routine Lab Tests 12/30/18 12/30/18 12/30/18 14:09 14:27 14:27 WBC 12.5 H RBC 4.03 L Hgb 12.3 Hct 37.5 MCV 93.1 MCH 30.5 MCHC 32.8 RDW 12.4 Plt Count 371 MPV 10.6 H Gran % 78.8 H Eos # (Auto) 0.14 Absolute Lymphs (auto) 1.28 Absolute Monos (auto) 1.20 Lymphocytes % 10.2 L Monocytes % 9.6 Eosinophils % 1.1 Basophils % 0.3 Absolute Granulocytes 9.85 H Basophils # 0.04 D-Dimer Sodium 131 L Potassium 3.8 Chloride 90 L Carbon Dioxide 28 Anion Gap 15.9 H BUN 15 Creatinine 0.89 Estimated GFR > 60.0 Glucose 117 H Lactic Acid 1.7 Calcium 8.6 Magnesium 1.7 Total Bilirubin 0.40 AST 31 ALT 22 Alkaline Phosphatase 86 Troponin I NT-Pro-B Natriuret Pep 78.8 Serum Total Protein 6.7 Albumin 3.6 Amylase 211 H Lipase 67 Urine Color Urine Appearance Urine pH Ur Specific [place] Urine Protein Urine Ketones Urine Blood Urine Nitrite Urine Bilirubin Urine Urobilinogen Ur Leukocyte Esterase Urine WBC (Auto) Urine RBC (Auto) U Epithel Cells (Auto) Urine Bacteria (Auto) Urine Culture Reflexed Urine Glucose 12/30/18 12/30/18 12/30/18 14:27 14:27 14:27 WBC RBC Hgb Hct MCV MCH MCHC RDW Plt Count MPV Gran % Eos # (Auto) Absolute Lymphs (auto) Absolute Monos (auto) Lymphocytes % Monocytes % Eosinophils % Basophils % Absolute Granulocytes Basophils # D-Dimer 7635 H* Sodium Potassium Chloride Carbon Dioxide Anion Gap BUN Creatinine Estimated GFR Glucose Lactic Acid Calcium Magnesium Total Bilirubin AST ALT Alkaline Phosphatase Troponin I < 0.012 NT-Pro-B Natriuret Pep Serum Total Protein Albumin Amylase Lipase Urine Color YELLOW Urine Appearance CLEAR Urine pH 6.0 Ur Specific [place] 1.020 Urine Protein NEGATIVE Urine Ketones NEGATIVE Urine Blood SMALL Urine Nitrite NEGATIVE Urine Bilirubin NEGATIVE Urine Urobilinogen NEGATIVE Ur Leukocyte Esterase NEGATIVE Urine WBC (Auto) NONE Urine RBC (Auto) 0-2 U Epithel Cells (Auto) RARE Urine Bacteria (Auto) RARE Urine Culture Reflexed ORDERED SEPARATELY Urine Glucose NEGATIVE 12/31/18 12/31/18 05:25 05:25 WBC 11.7 H RBC 3.76 L Hgb 11.7 L Hct 35.0 MCV 93.1 MCH 31.1 MCHC 33.4 RDW 12.5 Plt Count 383 MPV 10.7 H Gran % 83.2 H Eos # (Auto) 0.04 Absolute Lymphs (auto) 1.03 Absolute Monos (auto) 0.88 Lymphocytes % 8.8 L Monocytes % 7.5 Eosinophils % 0.3 Basophils % 0.2 Absolute Granulocytes 9.76 H Basophils # 0.02 D-Dimer Sodium 132 L Potassium 4.3 Chloride 91 L Carbon Dioxide 29 Anion Gap 15.7 H BUN 15 Creatinine 0.85 Estimated GFR > 60.0 Glucose 135 H Lactic Acid Calcium 8.6 Magnesium Total Bilirubin 0.50 AST 26 ALT 19 Alkaline Phosphatase 80 Troponin I NT-Pro-B Natriuret Pep Serum Total Protein 6.5 Albumin 3.4 L Amylase Lipase Urine Color Urine Appearance Urine pH Ur Specific [place] Urine Protein Urine Ketones Urine Blood Urine Nitrite Urine Bilirubin Urine Urobilinogen Ur Leukocyte Esterase Urine WBC (Auto) Urine RBC (Auto) U Epithel Cells (Auto) Urine Bacteria (Auto) Urine Culture Reflexed Urine Glucose Microbiology 12/30/18 14:27 Catherized Urine Culture - Preliminary NO GROWTH TO DATE Code(s): R18.8 - OTHER ASCITES (2) HTN (hypertension) Current Visit: Yes Status: Acute Qualifiers: Hypertension type: essential hypertension Qualified Code(s): I10 - Essential (primary) hypertension Code(s): I10 - ESSENTIAL (PRIMARY) HYPERTENSION
[2018-12-31] MEDS ORDERED: VITE PO SCH (10:00)
[2018-12-31] MEDS ORDERED: [UNRECOGNIZED DRUG - OTHER] PO SCH (10:00)
[2018-12-31] MEDS ORDERED: OMEGA PO SCH (10:00)
[2018-12-31] MEDS ORDERED: [UNRECOGNIZED DRUG - OTHER] PO SCH (10:00)
[2018-12-31] MEDS ORDERED: FISH OIL PO SCH (10:00)
[2018-12-31] MEDS ORDERED: LISINOPRIL PO SCH (10:00)
[2018-12-31] MEDS ORDERED: POTASSIUM PO SCH (10:00)
[2018-12-31] MEDS ORDERED: HYDROCHLOROTHIAZIDE PO SCH (10:00)
[2018-12-31] MEDS: Protonix 40MG Tablet PO SCH (10:07)
[2018-12-31] MEDS: BUMEX 1 MG PO SCH (10:07)
[2018-12-31] MEDS: Zocor 10MG PO SCH (10:07)
[2018-12-31] MEDS: ENOXAPARIN SODIUM SQ SCH ×2 (10:08→21:09)
[2018-12-31] MEDS: ROCEPHIN 1 Gm-D5w 50 ml Bag** 1 G/50 ML IVPB IV SCH (10:08)
[2018-12-31 17:49] LABS: INR 1.29 (0.8-3.0); PROTIME 14.7 SECONDS (9.95-12.35)
[2018-12-31] MEDS: Cyclobenzaprine 10 MG PO PRN (21:10)
[2018-12-31] MEDS: Zestril 10 MG*** 10 MG, hydroDIURIL 25 MG*** 12.5 MG PO SCH ×2 (21:10)
[2018-12-31] MEDS: MAG-OX 400 PO SCH (21:11)
[2019-01-01] MEDS: DILAUDID 2 MG INJECTION IV PRN ×5 (03:05→19:55)
[2019-01-01] MEDS: Cyclobenzaprine 10 MG PO PRN (07:54)
[2019-01-01] MEDS: ENOXAPARIN SODIUM SQ SCH ×2 (10:00→22:46)
[2019-01-01] MEDS: BUMEX 1 MG PO SCH (10:19)
[2019-01-01] MEDS: Protonix 40MG Tablet PO SCH (10:19)
[2019-01-01] MEDS: Zocor 10MG PO SCH (10:19)
[2019-01-01] MEDS: ROCEPHIN 1 Gm-D5w 50 ml Bag** 1 G/50 ML IVPB IV SCH (10:20)
[2019-01-01] MEDS: MAG-OX 400 PO SCH ×2 (10:20→22:46)
--- NOTE | 2019-01-01 11:01 | XRAY ---
Indication: Abdominal ascites. Informed consent obtained. Patient placed supine. Initial 4 quadrant abdominal ultrasound performed for localization. Largest pocket in the right lower quadrant. The abdominal wall was prepped and draped in sterile fashion. 1% lidocaine plain was used for local anesthesia. Tiny skin incision made. 5 [place] paracentesis needle/catheter was then percutaneously inserted. Once fluid was aspirating, the outer catheter was then advanced with the inner needle removed. Catheter was connected to a Vacutainer. Approximately 2 L of dark azul fluid aspirated and sent to laboratory for analysis. Repeat sonogram demonstrates marked improvement with small residual. Catheter removed. Band-Aid applied over the puncture site. Patient was discharged in good condition. Impression: Technically successful ultrasound-guided abdominal paracentesis for both diagnostic and therapeutic purpose. No immediate complications or blood loss.
--- NOTE | 2019-01-01 11:07 | XRAY ---
Indication: Bilateral leg swelling. Elevated d-dimer. Two-dimensional sonogram and color Doppler imaging of the major venous vessels the left and right leg was performed. Comparison: None Right leg demonstrates nonoccluding thrombi in the popliteal, tibial peroneal trunk, and posterior tibial veins. There is occluding thrombus in the gastrocnemius vein. No thrombus seen in the remaining common femoral, deep femoral, femoral, and greater saphenous veins. Left leg demonstrates occluding thrombus in the gastrocnemius vein. No thrombus in the remaining common femoral, deep femoral, femoral, popliteal, and posterior tibial veins. Impression: DVTs in both lower legs as detailed above.
--- NOTE | 2019-01-01 11:41 | PCM.NOTE ---
Date and Time: 01/01/19 1140 Subjective Assessment: doing ok, still c/o abdominal pain and back pain - Review of Systems Constitutional: No Fever, No Chills Eyes: No Symptoms Ears, Nose, & Throat: No Symptoms Respiratory: No Cough, No Short Of Breath Cardiac: No Chest Pain, No Edema, No Syncope Abdominal/Gastrointestinal: Abdominal Pain, No Nausea, No Vomiting, No Diarrhea Genitourinary Symptoms: No Dysuria Musculoskeletal: No Back Pain, No Neck Pain Skin: No Rash Neurological: No Dizziness, No Focal Weakness, No Sensory Changes Psychological: No Symptoms Endocrine: No Symptoms Hematologic/Lymphatic: No Symptoms Immunological/Allergic: No Symptoms Objective Exam General Appearance: no apparent distress, alert Neurologic Exam: alert, oriented x 3, cooperative, normal mood/affect, nml cerebellar function, sensation nml, No motor deficits Skin Exam: normal color, warm, dry Eye Exam: PERRL, EOMI, eyes nml inspection Ears, Nose, Throat Exam: normal ENT inspection, pharynx normal, moist mucous membranes Neck Exam: normal inspection, non-tender, supple, full range of motion Respiratory Exam: normal breath sounds, lungs clear, No respiratory distress Cardiovascular Exam: regular rate/rhythm, normal heart sounds Gastrointestinal/Abdomen Exam: soft, No tenderness, No mass Extremity Exam: normal inspection, normal range of motion Back Exam: normal inspection, normal range of motion, No CVA tenderness, No vertebral tenderness Pelvic Exam: deferred Rectal Exam: deferred OBJECTIVE DATA Vital Signs: Vital Signs - 24 hr Temp Pulse Resp BP Pulse Ox 01/01/19 08:00 20 01/01/19 07:00 98.1 F 103 H 20 105/63 92 L 01/01/19 06:44 92 L 01/01/19 04:00 20 01/01/19 03:00 97.7 F 109 H 20 119/73 94 L 01/01/19 00:00 19 12/31/18 23:00 98.5 F 109 H 19 110/63 95 12/31/18 20:00 19 12/31/18 19:32 97.4 F 100 H 19 111/64 93 L 12/31/18 19:18 94 L 12/31/18 17:00 97.8 F 102 H 18 103/64 92 L 12/31/18 16:00 18 12/31/18 13:00 97.6 F 102 H 18 123/83 98 12/31/18 12:00 18 Oxygen-Last 24 hours O2 Percentage 2 Liters = 28% O2 Percentage 2 Liters = 28% O2 Percentage 2 Liters = 28% O2 Percentage 2 Liters = 28% O2 Percentage 2 Liters = 28% O2 Percentage 2 Liters = 28% Pain Assessment - Last Documented Pain Intensity [Back] 8 Pain Intensity 7 Pain Scale Used 0-10 Pain Scale Intake and Output: Intake & Output 12/29/18 12/30/18 12/31/18 01/01/19 11:59 11:59 11:59 11:59 Intake Total 1580 1080 Output Total 800 950 Balance 780 130 Weight 104 kg 108.4 kg Lab Results: Lab Results-Last 24 Hours 12/31/18 Range/Units 06:00 PT 14.7 H (9.95-12.35) SECONDS INR 1.29 (0.8-3.0) Radiology Exams: Radiology Procedures Category Date Time Status ABDOMEN AND PELVIS W/0 CONTRAS [CT] Stat Exams 12/30/18 15:27 Completed ABDOMINAL PARACENTESIS [US] Routine Exams 01/01/19 09:00 Completed CHEST WITH CONTRAST [CT] Stat Exams 12/30/18 15:27 Completed VENOUS BILATERAL EXTREMITY [US] Stat Exams 01/01/19 07:00 Completed Multi-Disciplinary Progress Notes: Multi-Disciplinary Progress Notes 12/31/18 13:55 Case Management Note by Coby Ni DISCHARGE PLANS REVIEWED, NO LAY CAREGIVER ASSIGNED. PT NORMALLY LIVES AT HOME WITH HER SPOUSE, INDEPENDENT OF ALL ADL'S, NO HOME OXYGEN, DOES HAVE A WALKER. PLAN TO RETURN HOME TO PRE EPISODIC LEVEL OF FUNCTION. WILL CONTINUE TO MONITOR FOR ALL D/C NEEDS. Initialized on 12/31/18 13:55 - END OF NOTE Assessment/Plan (1) Ascites Current Visit: Yes Status: Acute Qualifiers: Ascites type: other type Qualified Code(s): R18.8 - Other ascites Assessment & Plan: s/p ascites tapping Code(s): R18.8 - OTHER ASCITES (2) HTN (hypertension) Current Visit: Yes Status: Acute Qualifiers: Hypertension type: essential hypertension Qualified Code(s): I10 - Essential (primary) hypertension Code(s): I10 - ESSENTIAL (PRIMARY) HYPERTENSION
[2019-01-01] MEDS ORDERED: Sodium Chloride 0.9% 1000 ML 1,000 ML IV STA (14:06)
[2019-01-01] MEDS ORDERED: XYLOCAINE 1% HCL 20 ML MDV IJ ONE (15:25)
[2019-01-01] MEDS: Zofran 4 MG/2 ML VIAL IV PRN (15:41)
[2019-01-01] MEDS: Zestril 10 MG*** 10 MG, hydroDIURIL 25 MG*** 12.5 MG PO SCH ×2 (22:44)
[2019-01-02] MEDS: DILAUDID 2 MG INJECTION IV PRN (03:40)
[2019-01-02 06:09] LABS: BF Color Yellow
[2019-01-02 06:29] LABS: CARCINOEMBRYONIC ANTIGEN 2.1 ng/mL (0.0-3.1)
[2019-01-02] MEDS ORDERED: Norco 10/325 MG Tablet PO PRN (08:47)
[2019-01-02] MEDS: Norco 10/325 MG Tablet PO PRN ×2 (09:07→13:14)
[2019-01-02] MEDS: MAG-OX 400 PO SCH (09:08)
[2019-01-02] MEDS: Protonix 40MG Tablet PO SCH (09:08)
[2019-01-02] MEDS: BUMEX 1 MG PO SCH (09:08)
[2019-01-02] MEDS: Zocor 10MG PO SCH (09:10)
[2019-01-02] MEDS: ROCEPHIN 1 Gm-D5w 50 ml Bag** 1 G/50 ML IVPB IV SCH (09:45)
--- NOTE | 2019-01-02 09:59 | XRAY ---
Indication: Ascites. Evaluate for possible paracentesis. Four-quadrant abdominal sonogram demonstrates a few small pockets of ascites, largest in the left lower quadrant measuring 5.3 x 3.7 cm. I believe there is not enough ascites to perform paracentesis safely.
[2019-01-02] MEDS ORDERED: ELIQUIS 2.5 MG TABLET PO SCH (10:00)
[2019-01-02 12:33] VITALS: BP 98/62; PULSE 96; O2SAT 94
[2019-01-03 11:09] LABS: CA 19-9 49.6 IU/mL (0.0-34.9)
--- NOTE | 2019-01-03 11:45 | PCM.DS ---
Discharge Summary Date of Admission: 12/30/18 20:44 Date of Discharge: 01/02/2019 Admitting Physician: VANGIE ANTON Consults: Consults on Case 12/30/18 20:58 Consult Physician ROUTINE Primary Care Provider: VANGIE ANTON Allergies Allergies morphine Allergy (Mild, Verified 12/30/18 13:38) Itching Hospital Summary - Hospital Course Hospital Course: Chief Complaint Diagnosis abdominal swelling and leg swelling for 1 week Allergies Allergy/AdvReac Type Severity Reaction Status Date / Time morphine Allergy Mild Itching Verified 12/30/18 13:38 Vital Signs (Last 24 hours) Temp Pulse Resp BP Pulse Ox 01/02/19 12:00 98.5 F 96 H 18 98/62 94 L Home Medications Medication Instructions Recorded Confirmed Last Taken Type Bumetanide 2 mg DAILY 12/30/18 12/30/18 12/30/18 08:00 History Omeprazole Magnesium [Prilosec Otc] 20 mg PO DAILY 12/30/18 12/30/18 12/30/18 08 :00 History Potassium 1 ea DAILY 12/30/18 12/30/18 12/30/18 08:00 History Rosuvastatin Calcium 5 mg DAILY 12/30/18 12/30/18 12/30/18 08:00 History Ubidecar/Fish Oil/Jasper-3/Benny 100 mg PO QAM 12/30/18 12/30/18 12/30/18 08:00 History [Coq-10 & Fish Oil Softgel] Apixaban [Eliquis] 5 mg PO BID #60 tablet 01/02/19 Unknown Rx Current Medications Discontinued Medications Generic Name Dose Route Start Last Admin Trade Name Freq PRN Reason Stop Dose Admin Acetaminophen 650 mg 12/30/18 20:58 12/31/18 12:02 Tylenol 325 Mg PO 01/29/19 20:57 650 mg Q4H PRN PRN Administration PAIN, FEVER, HEADACHE Hydrocodone Bitart/Acetaminophen 1 tab 01/02/19 08:47 Britt 10/325 Mg Tablet PO 01/07/19 08:46 Q4H PRN PRN PAIN Hydrocodone Bitart/Acetaminophen 1 tab 01/02/19 08:54 01/02/19 13:14 Britt 10/325 Mg Tablet PO 01/07/19 08:53 1 tab Q4H PRN PRN Administration PAIN Albuterol Sulfate 2.5 mg 12/31/18 07:50 Proventil 2.5 Mg/3 Ml Neb IH 01/30/19 07:49 QID PRN PRN SHORTNESS OF BREATH Apixaban 5 mg 01/02/19 10:00 01/02/19 10:08 Eliquis 2.5 Mg Tablet PO 02/01/19 09:59 5 mg BID ESTEBAN Administration Bumetanide 2 mg 12/31/18 10:00 01/02/19 09:08 Bumex 1 Mg PO 01/30/19 09:59 2 mg DAILY ESTEBAN Administration Lisinopril 10 mg/ 0 mg 12/30/18 23:00 12/30/18 22:56 Hydrochlorothiazide 12.5 mg PO 01/29/19 22:59 12.5 mg DAILY ESTEBAN Administration Lisinopril 10 mg/ 0 mg 12/31/18 22:00 01/01/19 22:44 Hydrochlorothiazide 12.5 mg PO 01/29/19 22:59 12.5 mg HS ESTEBAN Administration Cyclobenzaprine HCl 5 mg 12/31/18 03:59 12/31/18 07:01 Cyclobenzaprine 10 Mg PO 01/30/19 09:59 5 mg BID PRN Administration MUSCLE SPASMS Cyclobenzaprine HCl 0 mg 12/31/18 07:45 Cyclobenzaprine 10 Mg PO 01/30/19 03:58 BID PRN PRN MUSCLE SPASMS Cyclobenzaprine HCl 5 mg 12/31/18 13:41 12/31/18 15:13 Cyclobenzaprine 10 Mg PO 01/30/19 07:44 5 mg TID PRN PRN Administration MUSCLE SPASMS Cyclobenzaprine HCl 0 mg 12/31/18 15:30 01/01/19 07:54 Cyclobenzaprine 10 Mg PO 01/30/19 07:44 10 mg TID PRN PRN Administration MUSCLE SPASMS Enoxaparin Sodium 100 mg 12/30/18 20:00 12/30/18 20:14 Enoxaparin Sodium SQ 01/29/19 19:59 100 mg Q12H ESTEBAN Administration Enoxaparin Sodium Confirm 12/30/18 20:11 Enoxaparin Sodium Administered 12/30/18 20:12 Dose 120 mg SQ .STK-MED ONE Enoxaparin Sodium 100 mg 12/30/18 20:58 12/30/18 22:54 Enoxaparin Sodium SQ 01/29/19 20:57 Not Given Q12H ESTEBAN Enoxaparin Sodium 100 mg 12/31/18 10:00 01/01/19 22:46 Enoxaparin Sodium SQ 01/29/19 20:57 100 mg Q12HT ESTEABN Administration Hydrochlorothiazide Confirm 12/30/18 22:53 Hydrodiuril 25 Mg Administered 12/30/18 22:54 Dose 25 mg .ROUTE .STK-MED ONE Hydromorphone HCl 1 mg 12/30/18 20:06 12/30/18 20:14 Hydromorphone 1 Mg/Ml Ampule IV 12/30/18 20:07 1 mg STAT ONE Administration Hydromorphone HCl Confirm 12/30/18 20:11 Hydromorphone 1 Mg/Ml Ampule Administered 12/30/18 20:12 Dose 1 mg .ROUTE .STK-MED ONE Hydromorphone HCl 1 mg 12/30/18 20:58 12/31/18 12:47 Dilaudid 2 Mg Injection IV 01/04/19 20:57 1 mg Q4H PRN PRN Administration PAIN Hydromorphone HCl 1.5 mg 12/31/18 15:30 01/01/19 03:05 Dilaudid 2 Mg Injection IV 01/05/19 15:29 1.5 mg Q3-4HPRN PRN Administration PAIN Hydromorphone HCl 1.5 mg 01/01/19 06:43 01/02/19 03:40 Dilaudid 2 Mg Injection IV 01/06/19 06:42 1 mg Q3H PRN PRN Administration PAIN Ceftriaxone Sodium/Dextrose 1 g in 50 mls @ 100 mls/hr 12/31/18 10:00 09:45 Rocephin 1 Gm-D5w 50 Ml Bag IV 01/30/19 09:59 100 mls/hr Q24H10 ESTEBAN Administration Sodium Chloride 1,000 mls @ 999 mls/hr 01/01/19 14:06 01/01/19 14:18 Sodium Chloride 0.9% 1000 Ml IV 01/01/19 15:06 999 mls/hr .Q1H1M STA Administration Lidocaine HCl 20 ml 01/01/19 15:25 Xylocaine 1% Hcl 20 Ml Mdv IJ 01/01/19 15:26 .STK-MED ONE Lisinopril Confirm 12/30/18 22:53 Zestril 10 Mg Administered 12/30/18 22:54 Dose 10 mg .ROUTE .STK-MED ONE Magnesium Oxide 400 mg 12/31/18 03:54 Mag-Ox 400 PO 01/30/19 03:53 DAILY PRN PRN muscle cramps Magnesium Oxide 400 mg 12/31/18 04:00 12/31/18 04:04 Mag-Ox 400 PO 12/31/18 04:01 400 mg NOW ONE Administration Magnesium Oxide 400 mg 12/31/18 22:00 01/02/19 09:08 Mag-Ox 400 PO 01/30/19 21:59 400 mg BID ESTEBAN Administration Miscellaneous Information 1 each 12/31/18 08:15 Medication Intervention PO 01/30/19 08:14 .RN TO CHECK ON ESTEBAN Miscellaneous Information 1 each 12/31/18 08:15 Medication Intervention PO 01/30/19 08:14 .RN TO CHECK ON ESTEBAN Morphine Sulfate 4 mg 12/30/18 19:59 12/31/18 01:41 Morphine Sulfate 4 Mg Inj IV 12/30/18 20:00 Not Given STAT ONE Ondansetron HCl 4 mg 12/30/18 19:59 12/30/18 20:13 Zofran 4 Mg/2 Ml Vial IV 12/30/18 20:00 4 mg STAT ONE Administration Ondansetron HCl Confirm 12/30/18 20:11 Zofran 4 Mg/2 Ml Vial Administered 12/30/18 20:12 Dose 4 mg .ROUTE .STK-MED ONE Ondansetron HCl Confirm 12/30/18 20:17 Zofran 4 Mg/2 Ml Vial Administered 12/30/18 20:18 Dose 4 mg .ROUTE .STK-MED ONE Ondansetron HCl 4 mg 12/30/18 20:58 01/01/19 15:41 Zofran 4 Mg/2 Ml Vial IV 01/29/19 20:57 4 mg Q6H PRN PRN Administration NAUSEA/VOMITING Pantoprazole Sodium 40 mg 12/31/18 10:00 01/02/19 09:08 Protonix 40mg Tablet PO 01/30/19 09:59 40 mg DAILY ESTEBAN Administration Simvastatin 10 mg 12/31/18 10:00 01/02/19 09:10 Zocor 10mg PO 01/30/19 09:59 Not Given DAILY ESTEBAN Intake & Output (Last 24 hours) 12/31/18 01/01/19 01/02/19 01/03/19 11:59 11:59 11:59 11:59 Intake Total 1580 1080 2493 360 Output Total 203 553 1394 1200 Balance 780 130 -457 -840 Weight 104 kg 108.4 kg 104.3 kg Microbiology Results (Last 24 hours) 01/01/19 09:16 Peritoneal Fluid Routine Culture - Preliminary Laboratory Results (Last 24 hours) 01/01/19 12:00 CA 19-9 Antigen 49.6 H Patient Care Notes (Last 24 hours) 01/02/19 13:27 Nursing Note by Karen Chambers Patient wheeled to front exit upon discharge. to drive patient home and help manage care Initialized on 01/02/19 13:27 - END OF NOTE - Vitals & Intake/Output Vital Signs: Vital Signs Temperature 98.5 F 01/02/19 12:00 Pulse Rate 96 H 01/02/19 12:00 Respiratory Rate 18 01/02/19 12:00 Blood Pressure 98/62 01/02/19 12:00 O2 Sat by Pulse Oximetry 94 L 01/02/19 12:00 Oxygen-Last Documented O2 Percentage 2 Liters = 28% Intake & Output: Intake & Output 12/31/18 01/01/19 01/02/19 01/03/19 11:59 11:59 11:59 11:59 Intake Total 1580 1080 2493 360 Output Total 493 013 1249 1200 Balance 780 130 -457 -840 Weight 104 kg 108.4 kg 104.3 kg - Lab Result Diagrams: 12/31/18 05:25 12/31/18 05:25 Lab Results-Last 24 Hrs: Lab Results-Last 24 Hours 01/01/19 Range/Units 12:00 CA 19-9 Antigen 49.6 H (0.0-34.9) IU/mL Micro Results-Entire Visit: Microbiology 01/01/19 09:16 Routine Culture - Preliminary Peritoneal Fluid 12/30/18 14:27 Urine Culture - Final Catherized NO GROWTH - Radiology Exams Ordered Rad Exams-Entire Visit: Radiology Procedures Category Date Time Status ABDOMINAL-LIMITED [US] Routine Exams 01/02/19 09:06 Completed - Procedures and Test Procedures and Tests throughout Hospitalization: Therapy Orders & Screens 12/30/18 20:58 Oxygen Nasal Cannula 2 lpm Comment: 01/01/19 11:52 Qualify for Home Oxygen TODAY Comment: Diagnosis: abdominal swelling and leg swelling for 1 week Discharge Exam General Appearance: no apparent distress, alert Neurologic Exam: alert, oriented x 3, cooperative, normal mood/affect, nml cerebellar function, sensation nml, No motor deficits Eye Exam: PERRL, EOMI, eyes nml inspection Ears, Nose, Throat Exam: normal ENT inspection, pharynx normal, moist mucous membranes Neck Exam: normal inspection, non-tender, supple, full range of motion Respiratory Exam: normal breath sounds, lungs clear, No respiratory distress Cardiovascular Exam: regular rate/rhythm, normal heart sounds Gastrointestinal/Abdomen Exam: soft, No tenderness, No mass Pelvic Exam: deferred Rectal Exam: deferred Back Exam: normal inspection, normal range of motion, No CVA tenderness, No vertebral tenderness Extremity Exam: normal inspection, normal range of motion Skin Exam: normal color, warm, dry Final Diagnosis/Problem List - Final Discharge Diagnosis/Problem (1) Ascites Status: Acute Priority: High Assessment & Plan: Chief Complaint Diagnosis abdominal swelling and leg swelling for 1 week Allergies Allergy/AdvReac Type Severity Reaction Status Date / Time morphine Allergy Mild Itching Verified 12/30/18 13:38 Vital Signs (Last 24 hours) Temp Pulse Resp BP Pulse Ox 01/02/19 12:00 98.5 F 96 H 18 98/62 94 L Home Medications Medication Instructions Recorded Confirmed Last Taken Type Bumetanide 2 mg DAILY 12/30/18 12/30/18 12/30/18 08:00 History Omeprazole Magnesium [Prilosec Otc] 20 mg PO DAILY 12/30/18 12/30/18 12/30/18 08 :00 History Potassium 1 ea DAILY 0612/30/18 12/30/18 08:00 History Rosuvastatin Calcium 5 mg DAILY 12/30/18 12/30/18 12/30/18 08:00 History Ubidecar/Fish Oil/Jasper-3/Benny 100 mg PO QAM 12/30/18 12/30/18 12/30/18 08:00 History [Coq-10 & Fish Oil Softgel] Apixaban [Eliquis] 5 mg PO BID #60 tablet 01/02/19 Unknown Rx Current Medications Discontinued Medications Generic Name Dose Route Start Last Admin Trade Name Freq PRN Reason Stop Dose Admin Acetaminophen 650 mg 12/30/18 20:58 12/31/18 12:02 Tylenol 325 Mg PO 01/29/19 20:57 650 mg Q4H PRN PRN Administration PAIN, FEVER, HEADACHE Hydrocodone Bitart/Acetaminophen 1 tab 01/02/19 08:47 Britt 10/325 Mg Tablet PO 01/07/19 08:46 Q4H PRN PRN PAIN Hydrocodone Bitart/Acetaminophen 1 tab 01/02/19 08:54 01/02/19 13:14 Britt 10/325 Mg Tablet PO 01/07/19 08:53 1 tab Q4H PRN PRN Administration PAIN Albuterol Sulfate 2.5 mg 12/31/18 07:50 Proventil 2.5 Mg/3 Ml Neb IH 01/30/19 07:49 QID PRN PRN SHORTNESS OF BREATH Apixaban 5 mg 01/02/19 10:00 01/02/19 10:08 Eliquis 2.5 Mg Tablet PO 02/01/19 09:59 5 mg BID ESTEBAN Administration Bumetanide 2 mg 12/31/18 10:00 01/02/19 09:08 Bumex 1 Mg PO 01/30/19 09:59 2 mg DAILY ESTEBAN Administration Lisinopril 10 mg/ 0 mg 12/30/18 23:00 12/30/18 22:56 Hydrochlorothiazide 12.5 mg PO 01/29/19 22:59 12.5 mg DAILY ESTEBAN Administration Lisinopril 10 mg/ 0 mg 12/31/18 22:00 01/01/19 22:44 Hydrochlorothiazide 12.5 mg PO 01/29/19 22:59 12.5 mg HS ESTEBAN Administration Cyclobenzaprine HCl 5 mg 12/31/18 03:59 12/31/18 07:01 Cyclobenzaprine 10 Mg PO 01/30/19 09:59 5 mg BID PRN Administration MUSCLE SPASMS Cyclobenzaprine HCl 0 mg 12/31/18 07:45 Cyclobenzaprine 10 Mg PO 01/30/19 03:58 BID PRN PRN MUSCLE SPASMS Cyclobenzaprine HCl 5 mg 12/31/18 13:41 12/31/18 15:13 Cyclobenzaprine 10 Mg PO 01/30/19 07:44 5 mg TID PRN PRN Administration MUSCLE SPASMS Cyclobenzaprine HCl 0 mg 12/31/18 15:30 01/01/19 07:54 Cyclobenzaprine 10 Mg PO 01/30/19 07:44 10 mg TID PRN PRN Administration MUSCLE SPASMS Enoxaparin Sodium 100 mg 12/30/18 20:00 12/30/18 20:14 Enoxaparin Sodium SQ 01/29/19 19:59 100 mg Q12H ESTEBAN Administration Enoxaparin Sodium Confirm 12/30/18 20:11 Enoxaparin Sodium Administered 12/30/18 20:12 Dose 120 mg SQ .STK-MED ONE Enoxaparin Sodium 100 mg 12/30/18 20:58 12/30/18 22:54 Enoxaparin Sodium SQ 01/29/19 20:57 Not Given Q12H ESTEBAN Enoxaparin Sodium 100 mg 12/31/18 10:00 01/01/19 22:46 Enoxaparin Sodium SQ 01/29/19 20:57 100 mg Q12HT ESTEBAN Administration Hydrochlorothiazide Confirm 12/30/18 22:53 Hydrodiuril 25 Mg Administered 12/30/18 22:54 Dose 25 mg .ROUTE .STK-MED ONE Hydromorphone HCl 1 mg 12/30/18 20:06 12/30/18 20:14 Hydromorphone 1 Mg/Ml Ampule IV 12/30/18 20:07 1 mg STAT ONE Administration Hydromorphone HCl Confirm 12/30/18 20:11 Hydromorphone 1 Mg/Ml Ampule Administered 12/30/18 20:12 Dose 1 mg .ROUTE .STK-MED ONE Hydromorphone HCl 1 mg 12/30/18 20:58 12/31/18 12:47 Dilaudid 2 Mg Injection IV 01/04/19 20:57 1 mg Q4H PRN PRN Administration PAIN Hydromorphone HCl 1.5 mg 12/31/18 15:30 01/01/19 03:05 Dilaudid 2 Mg Injection IV 01/05/19 15:29 1.5 mg Q3-4HPRN PRN Administration PAIN Hydromorphone HCl 1.5 mg 01/01/19 06:43 01/02/19 03:40 Dilaudid 2 Mg Injection IV 01/06/19 06:42 1 mg Q3H PRN PRN Administration PAIN Ceftriaxone Sodium/Dextrose 1 g in 50 mls @ 100 mls/hr 12/31/18 10:00 09:45 Rocephin 1 Gm-D5w 50 Ml Bag IV 01/30/19 09:59 100 mls/hr Q24H10 ESTEBAN Administration Sodium Chloride 1,000 mls @ 999 mls/hr 01/01/19 14:06 01/01/19 14:18 Sodium Chloride 0.9% 1000 Ml IV 01/01/19 15:06 999 mls/hr .Q1H1M STA Administration Lidocaine HCl 20 ml 01/01/19 15:25 Xylocaine 1% Hcl 20 Ml Mdv IJ 01/01/19 15:26 .STK-MED ONE Lisinopril Confirm 12/30/18 22:53 Zestril 10 Mg Administered 12/30/18 22:54 Dose 10 mg .ROUTE .STK-MED ONE Magnesium Oxide 400 mg 12/31/18 03:54 Mag-Ox 400 PO 01/30/19 03:53 DAILY PRN PRN muscle cramps Magnesium Oxide 400 mg 12/31/18 04:00 12/31/18 04:04 Mag-Ox 400 PO 12/31/18 04:01 400 mg NOW ONE Administration Magnesium Oxide 400 mg 12/31/18 22:00 01/02/19 09:08 Mag-Ox 400 PO 01/30/19 21:59 400 mg BID ESTEBAN Administration Miscellaneous Information 1 each 12/31/18 08:15 Medication Intervention PO 01/30/19 08:14 .RN TO CHECK ON ESTEBAN Miscellaneous Information 1 each 12/31/18 08:15 Medication Intervention PO 01/30/19 08:14 .RN TO CHECK ON ESTEBAN Morphine Sulfate 4 mg 12/30/18 19:59 12/31/18 01:41 Morphine Sulfate 4 Mg Inj IV 12/30/18 20:00 Not Given STAT ONE Ondansetron HCl 4 mg 12/30/18 19:59 12/30/18 20:13 Zofran 4 Mg/2 Ml Vial IV 12/30/18 20:00 4 mg STAT ONE Administration Ondansetron HCl Confirm 12/30/18 20:11 Zofran 4 Mg/2 Ml Vial Administered 12/30/18 20:12 Dose 4 mg .ROUTE .STK-MED ONE Ondansetron HCl Confirm 12/30/18 20:17 Zofran 4 Mg/2 Ml Vial Administered 12/30/18 20:18 Dose 4 mg .ROUTE .STK-MED ONE Ondansetron HCl 4 mg 12/30/18 20:58 01/01/19 15:41 Zofran 4 Mg/2 Ml Vial IV 01/29/19 20:57 4 mg Q6H PRN PRN Administration NAUSEA/VOMITING Pantoprazole Sodium 40 mg 12/31/18 10:00 01/02/19 09:08 Protonix 40mg Tablet PO 01/30/19 09:59 40 mg DAILY ESTEBAN Administration Simvastatin 10 mg 12/31/18 10:00 01/02/19 09:10 Zocor 10mg PO 01/30/19 09:59 Not Given DAILY ESTEBAN Intake & Output (Last 24 hours) 12/31/18 01/01/19 01/02/19 01/03/19 11:59 11:59 11:59 11:59 Intake Total 1580 1080 2493 360 Output Total 499 159 4973 1200 Balance 780 965 -075 -116 Weight 104 kg 108.4 kg 104.3 kg Microbiology Results (Last 24 hours) 01/01/19 09:16 Peritoneal Fluid Routine Culture - Preliminary Laboratory Results (Last 24 hours) 01/01/19 12:00 CA 19-9 Antigen 49.6 H Patient Care Notes (Last 24 hours) 01/02/19 13:27 Nursing Note by Karen Chambers Patient wheeled to front exit upon discharge. to drive patient home and help manage care Initialized on 01/02/19 13:27 - END OF NOTE Code(s): R18.8 - OTHER ASCITES (2) HTN (hypertension) Status: Acute Code(s): I10 - ESSENTIAL (PRIMARY) HYPERTENSION - Discharge Discharge Date: 01/02/19 Disposition: Home, Self-Care Condition: Stable Prescriptions: New Apixaban [Eliquis] 5 mg PO BID #60 tablet Continue Lisinopril/Hydrochlorothiazide [Zestoretic 10-12.5 mg Tablet] 10 - 12.5 mg PO DAILY Albuterol 2.5 mg/3 ml Neb [Proventil 2.5 mg/3 ml Neb] 1 neb IH QID PRN PRN Reason: Shortness Of Breath Rosuvastatin Calcium 5 mg DAILY Potassium 1 ea DAILY Bumetanide 2 mg DAILY Ubidecar/Fish Oil/Jasper-3/Benny [Coq-10 & Fish Oil Softgel] 100 mg PO QAM Omeprazole Magnesium [Prilosec Otc] 20 mg PO DAILY Instructions: Oxygen Therapy, Adult, Deep Vein Thrombosis (Blood Clots in the Legs), Fluid in the Belly (Ascites), Apixaban Additional Instructions: WEAR 2 LITERS OF OXYGEN PER NASAL CANULA AT HOME ALL THE TIME FOR SHORTNESS OF BREATH. [facility] TO PROVIDE YOUR OXYGEN. YOU MAY REACH THEM AT [phone] FOR ANY NEEDS. Follow up with: VANGIE ANTON MD [Primary Care Provider] - 01/11/19 3:45 pm NASEEM LOPEZ MD [NON-STAFF PHY W/O PRIVILEGES] - 01/11/19 2:45 pm (at [facility])
== END 2019-01-02 13:20 | disposition home or self-care (01) | DRG 948 ==
LOC: ED 13:36 → MED SURG 20:44
PROVIDERS: ADMIT General Practice; ATTEND General Practice
DX: R18.8 Other ascites (principal); I82.4Z3 Acute embolism and thrombosis of unspecified deep veins of distal lower extremity, bilateral; R11.0 Nausea; R06.02 Shortness of breath; R10.9 Unspecified abdominal pain; I10 Essential (primary) hypertension; E78.00 Pure hypercholesterolemia, unspecified; I25.2 Old myocardial infarction; Z79.899 Other long term (current) drug therapy
CPT/HCPCS: 36000; 36415; 49083; 51702; 71260; 74176; 76705; 80053; 81001; 82150; 82378; 82945; 83605; 83615; 83690; 83735; 83880; 84157; 84484; 85025; 85379; 85610; 86301; 86304; 87070; 87086; 89050; 93005; 93970; 94760; 96372; 96374; 96375; 99285; J0696; J1170; J1650; J2405; A9270-GY

== ENCOUNTER 2021-03-02 10:13 | Day surgery (SDC) | payer MEDICARE ==
--- NOTE | 2021-03-02 09:35 | HP ---
DATE OF SURGERY: 03/02/2021 HISTORY OF PRESENT ILLNESS: The patient is a 65 year-old with gallbladder attack and is in the hospital. PAST MEDICAL HISTORY: Asthma. Anxiety. Depression. Dyslipidemia. Osteoarthritis. Hypertension. Gastroesophageal reflux disease. Ovarian cancer. She had a heart attack in the past. She has history of deep vein thrombosis a couple years ago or so. PAST SURGICAL HISTORY: Hysterectomy for ovarian cancer in the past. Appendectomy in the past. Right knee replacement and revision. MEDICATIONS: Carbidopa/Levodopa, lorazepam, omeprazole, Eliquis, had been on hydrochlorothiazide/lisinopril in the past. ALLERGIES: MORPHINE. FAMILY HISTORY: Cancer. SOCIAL HISTORY: She denies smoking. REVIEW OF SYSTEMS: Fourteen systems reviewed per admission assessment. No chest pain or palpitations. Other systems negative or noncontributory as above and per preadmission questionnaire. PHYSICAL EXAMINATION: GENERAL: No acute distress. HEENT: Sclerae nonicteric. NECK: No JVD. CHEST: Equal excursion, nonlabored breathing. CVS: Regular rate and rhythm. ABDOMEN: Soft. No peritoneal signs. She does have a midline incision from laparotomy from previous ovarian cancer in the past. EXTREMITIES: No significant edema. NEURO: Alert, oriented, moving extremities symmetrically. PSYCH: Appropriate mood and affect. IMPRESSION: Acute exacerbation symptomatic chronic cholecystitis. I feel the patient will benefit from cholecystectomy. Risks and benefits explained in detail including but not limited to bleeding or infection, risk of trocar injury or hernia, risk of bowel, bladder or blood vessel injury, risk of bile leak, bile duct injury, retained stone or sludge possibly requiring further procedure either open or ERCP, general risk of anesthesia, deep venous thrombosis, pulmonary embolism, pneumonia, perioperative risk of aches, pains, bloating, constipation and/or loose stools possibly even chronic in nature. She apparently has extensive scar tissue. She may have higher probability of possibly needing an open procedure. General risk of anesthesia, deep vein thrombosis, pulmonary embolism, pneumonia. Perioperative risk of aches, pains, bleeding, constipation or loose stools possibly chronic in nature. She understands and agrees to the planned procedure, will proceed with laparoscopic cholecystectomy with possible open as an outpatient.
[~2021-03-02 10:13] MED LIST: Lactated Ringers 1,000 ML IV ONE; Sensorcaine 0.25% 10 ML ONE
[2021-03-02] MEDS ORDERED: MEFOXIN 2 GM PREMIX** 2 GM/50 ML ML IV ONE (10:26)
[2021-03-02] MEDS ORDERED: Lactated Ringers 1,000 ML IV ONE (10:26)
[2021-03-02] MEDS ORDERED: Lactated Ringers 1,000 ML IV SCH (10:30)
[2021-03-02] MEDS ORDERED: MEFOXIN 2 GM PREMIX** 2 GM/50 ML ML IV SCH (11:00)
[2021-03-02] MEDS ORDERED: TORAdol 30 mg Injection ONE (13:22)
[2021-03-02] MEDS ORDERED: Xylocaine-Mpf 2% 5 Ml Vial ONE (13:22)
[2021-03-02] MEDS ORDERED: Zemuron 100 MG/10 ML ONE (13:22)
[2021-03-02] MEDS ORDERED: SUBLIMAZE 100 MCG/2 ML ONE ×3 (13:22→15:03)
[2021-03-02] MEDS ORDERED: Decadron 4 MG INJ ONE (13:22)
[2021-03-02] MEDS ORDERED: BRIDION 200MG/2ML IV ONE (13:22)
[2021-03-02] MEDS ORDERED: Zofran 4 MG/2 ML VIAL ONE (13:22)
[2021-03-02] MEDS ORDERED: DIPRIVAN 200 MG/20 ML IV ONE (13:22)
[2021-03-02] MEDS ORDERED: LOPRESSOR 5 MG/5 ML INJECTION IV ONE (13:54)
[2021-03-02] MEDS ORDERED: Hydromorphone 1 mg/ml Injection ONE ×2 (15:03→15:11)
[2021-03-02] MEDS ORDERED: Compazine 10 MG/2 ML ONE (15:16)
[2021-03-02 16:11] LABS: Appearance CLEAR (CLEAR); Bacteria RARE /HPF (NEGATIVE); Bilirubin NEGATIVE (NEGATIVE); Blood NEGATIVE Ery/ul (0-5); Glucose NEGATIVE (NEGATIVE); Ketones NEGATIVE (NEGATIVE); Leukocyte Esterase NEGATIVE (NEGATIVE); Mucus SLIGHT /HPF (NEGATIVE); Nitrite NEGATIVE (NEGATIVE); Protein,Urine Dip NEGATIVE (Negative); Specific Gravity 1.017 (1.005-1.025); Urobilinogen NEGATIVE mg/dL (0-1)
[2021-03-02 17:13] VITALS: BP 127/65; PULSE 90; O2SAT 97
[2021-03-02] MEDS ORDERED: Sodium Chloride 0.9% 10 ML FLUSH Syringe PORT FLUSH PRN (17:13)
--- NOTE | 2021-03-03 09:10 | OP ---
SURGERY DATE/TIME: 03/02/2021 1323 PREOPERATIVE DIAGNOSES: 1) Acute exacerbation of chronic cholecystitis, cholelithiasis. 2) History of ovarian cancer status post laparotomy in the past. POSTOPERATIVE DIAGNOSES: 1) Acute exacerbation of chronic cholecystitis, cholelithiasis. 2) History of ovarian cancer status post laparotomy in the past. 3) Severe inflammatory reaction around the gallbladder with some intra-abdominal adhesions from past laparotomy. PROCEDURES: 1) Laparoscopic lysis of adhesions. 2) Laparoscopic cholecystectomy. SURGEON: Dr. Bebo Rueda. ANESTHESIA: General. ESTIMATED BLOOD LOSS: Minimal. INDICATIONS: As noted above. Risks and benefits explained in detail but not limited to and consent obtained. DESCRIPTION OF PROCEDURE AND FINDINGS: The patient was taken to the operating room. General anesthesia induced. Abdomen prepped and draped in the usual sterile fashion. After official time out and no disagreement with planned procedure, a transverse incision made out to the right of her prior midline incision. Veress needle carefully inserted and tested with saline. Pneumoperitoneum accomplished insufflating opening pressure of 0-15. A 5 mm right upper quadrant port, bladeless port and camera inserted without difficulty followed by another 5 mm right upper quadrant port and 11 mm epigastric port later switched to a 12 mm epigastric port. Because of her adhesions in the midline another 5 mm port was placed in the left upper quadrant. It should be noted the Veress needle to avoid any viscera there were some small bowel even further to the right from where the Veress needle was but it would carefully miss the bowel. Slowly and carefully laparoscopic lysis of adhesions mostly with laparoscopic stephenie with some rare use of the LigaSure device sealing some small omental adhesions staying well away from the colon and small bowel. Lysis of adhesions was accomplished to allow freeing of space to allow for adequate motion of the ports. There are some inflammatory adhesions to the abdominal wall and the gallbladder and these are taken down with LigaSure device. The omental adhesions taken down posterior, lateral to anterior fashion. The gallbladder had severe chronic inflammatory reaction whether this is from her past treatments or from gallbladder inflammation itself or whether tumor reaction. There was no other visible large tumor implants in the abdomen but extensive concrete inflammatory reaction of the gallbladder. Slowly and carefully dissected posterior, lateral to anterior fashion until the cystic duct and infundibular area slowly and carefully well skeletonized until critical view obtained both anteriorly and posteriorly. Once this was accomplished, because of the extensive inflammatory reaction it was felt it would be safer to use stapler to control the cystic duct stump rather than relying a simple clip. Therefore EndoGIA stapler vascular load was carefully fired across the cystic duct side of the infundibular cystic duct junction area away from the visible common duct. Once this was accomplished, the cystic artery and pulsatile cystic artery branch isolated on the gallbladder wall. It was clipped x3 and divided. The gallbladder is slowly and carefully dissected free from its dense almost concrete attachments to the liver bed staying directly on the gallbladder wall. Just two-thirds up from the gallbladder towards the anterior edge of the liver, the gallbladder wall was thinned down and retracting it broke spilling a small amount of bile. No evidence of any large stone spillage this is suctioned clear. There was a large stone in the gallbladder this later dropped right in the fossa and placed above the liver while continuing dissection of the concrete inflammatory reaction. This took quite some time given the extensive concrete inflammatory reaction slowly and carefully accomplished staying directly on the gallbladder wall. Just prior to releasing from final attachments to the anterior edge of the liver, the liver bed re-inspected. There was minimal ooze from raw surface area. No vessel to cauterize or clip. The gallbladder released from final attachments. The large stone in the gallbladder placed in the provided sac by the hospital pulled up to the 12 port site in the epigastrium with the fascia slightly enlarged with a clamp that the bag and the gallbladder with gallstone was pulled free and passed off. The port is replaced. Copious amount of irrigation accomplished lateral to the liver and subhepatic space until clear. Liver bed re-inspected. Staple line us intact in cystic duct stump. Clips noted in place cystic artery stump. Just some mild, minimal ooze in the liver bed, no specific vessel to cauterize, clip or ligate. Because she is going to need to go back on her Eliquis eventually it was elected to leave a small piece of Surgicel in the gallbladder fossa and a small piece was left in position. Otherwise given the extensive inflammatory reaction, VALARIE drain placed subhepatic space out the lateral port incision secured with PDS suture and placed to bulb suction. At this point the lysis of adhesions in the bowel carefully inspected. There did not appear to be any evidence of any bowel issues secondary to lysis of adhesion, port, trocar or Veress needle placement. At this point fascial defect 12 site closed with puncture closure device with figure-of-8 of #1 Vicryl. Pneumoperitoneum decompressed. The wound irrigated out. Skin incision closed with 4-0 Vicryl. Steri-Strips and sterile dressing applied. 0.25% Marcaine local injected along the skin incision fascial defect. The patient tolerated the procedure well. There were no immediate complications. Findings discussed with the family out in the waiting area.
== END 2021-03-02 17:30 | disposition home or self-care (01) ==
LOC: SDC 10:13
PROVIDERS: ATTEND Surgery
DX: K80.00 Calculus of gallbladder with acute cholecystitis without obstruction (principal); K66.0 Peritoneal adhesions (postprocedural) (postinfection); Z85.43 Personal history of malignant neoplasm of ovary; Z79.899 Other long term (current) drug therapy
CPT/HCPCS: 81001; 87086; J0694; J1100; J1170; J1642; J1885; J2405; J2704; J3010